=== PATIENT | female | born 1985 | race Caucasian/White ===

== ENCOUNTER → 2016-04-23 | Outpatient (CLI) | payer BC | END | disposition home or self-care (01) | LOC: RAD.S 12:49 | DX: N63 Unspecified lump in breast (principal) ==

== ENCOUNTER 2016-06-16 17:42 | Emergency (ER) | payer BC ==
--- NOTE | 2016-06-19 13:00 | ER ---
ADMIT: 06/16/2016 RM/LOC: ER [facility] MR#: [id number] [facility] [address], [place] [id number] [address] [place] [address] Emergency Room Report SEX: F AGE: 30 : 1985 DATE: 06/16/2016 ADDENDUM: COURSE IN THE EMERGENCY ROOM: I initially did a CBC, CMP, urine, and urine test. That was all essentially negative. Because of her abdominal pain, I did do a CT of her abdomen. It did show larger appendix that measured 10 mm but no stranding. It did have two appendicoliths in it. Also showed heterogeneous uterus. After receiving the Toradol here in the emergency room, she said her pain is completely gone. She feels significantly better. She wants to go home. I did speak with Dr. Cat regarding this patient. We decided to send the patient at this home because she is not symptomatic of appendicitis. In fact, she never had right lower quadrant pain. It is mostly left lower and left upper quadrant. I did tell her signs and symptoms to return if she develops right lower quadrant with constant pain with nausea and anorexia, to return to the emergency room. She does have an appointment with Dr. White next week for her yearly checkup. I told her to follow up regarding the uterus findings. CLINICAL IMPRESSION: Abdominal pain, left upper quadrant and left lower quadrant, resolved in ER. HERNAN Peralta / Kun Jack MD / rosa maria JOB #: [id number] CC: Camden Mcconnell MD, Attending Physician Norma Fitzgerald MD, Family Physician
== END 2016-06-16 21:49 | disposition home or self-care (01) ==
LOC: ER 17:42
DX: R10.12 Left upper quadrant pain (principal); R10.32 Left lower quadrant pain

== ENCOUNTER 2016-06-28 05:27 | Day surgery (SDC) | payer BC | END 2016-06-28 11:10 | disposition home or self-care (01) | DX: C7A.020 Malignant carcinoid tumor of the appendix (principal); K35.80 Unspecified acute appendicitis; Z98.890 Other specified postprocedural states; Z79.899 Other long term (current) drug therapy ==